=== PATIENT | female | born 1955 | race Caucasian/White ===

== ENCOUNTER → 2018-09-14 | Outpatient (CLI) | payer OTHER ==
[~2018-09-14] MED LIST: ALPRAZOLAM 0.0.25 M1 PO; AMITRIPTYLINE H25 M2 PO; CALCIUM 1,0001 EACH PO; CLONAZEPAM 1 MG1 M1 PO; DULCOLAX5 MG PO; ESTRACE0.5 MG PO; FISH OIL 1,0001 EAC5 PO; INDERAL LA120 M1 PO; LINZESS290 MCG PO; LIPITOR 10 MG10 M1 PO; LISINOPRIL10 MG PO; MOM PO; PREDNISONE 10 M10 M1; PRILOSEC 20 MG20 MG PO; STELARA45 MG/0.1 SQ
== END ==
LOC: M.WC 08:30
DX: I87.331 Chronic venous hypertension (idiopathic) with ulcer and inflammation of right lower extremity (principal); L97.812 Non-pressure chronic ulcer of other part of right lower leg with fat layer exposed; M81.0 Age-related osteoporosis without current pathological fracture; F41.9 Anxiety disorder, unspecified; F32.9 Major depressive disorder, single episode, unspecified

== ENCOUNTER → 2018-09-21 | Outpatient (CLI) | payer OTHER | LOC: M.WC 05:03 | DX: I87.331 Chronic venous hypertension (idiopathic) with ulcer and inflammation of right lower extremity (principal); L97.811 Non-pressure chronic ulcer of other part of right lower leg limited to breakdown of skin; M81.0 Age-related osteoporosis without current pathological fracture; F41.9 Anxiety disorder, unspecified; F32.9 Major depressive disorder, single episode, unspecified ==

== ENCOUNTER → 2018-09-30 | Outpatient (CLI) | payer OTHER | LOC: M.WC 00:26 | DX: I87.331 Chronic venous hypertension (idiopathic) with ulcer and inflammation of right lower extremity (principal); L97.811 Non-pressure chronic ulcer of other part of right lower leg limited to breakdown of skin; M81.0 Age-related osteoporosis without current pathological fracture; F41.9 Anxiety disorder, unspecified; F32.9 Major depressive disorder, single episode, unspecified ==

== ENCOUNTER → 2018-10-05 | Outpatient (CLI) | payer OTHER | LOC: M.WC 05:36 | DX: I87.331 Chronic venous hypertension (idiopathic) with ulcer and inflammation of right lower extremity (principal); L97.818 Non-pressure chronic ulcer of other part of right lower leg with other specified severity; L03.115 Cellulitis of right lower limb; I10 Essential (primary) hypertension; M81.0 Age-related osteoporosis without current pathological fracture; F41.9 Anxiety disorder, unspecified; F32.9 Major depressive disorder, single episode, unspecified ==

== ENCOUNTER → 2018-10-11 | Outpatient (CLI) | payer OTHER | LOC: M.WC 07:44 | DX: I87.331 Chronic venous hypertension (idiopathic) with ulcer and inflammation of right lower extremity (principal); L97.812 Non-pressure chronic ulcer of other part of right lower leg with fat layer exposed; M81.0 Age-related osteoporosis without current pathological fracture; F41.9 Anxiety disorder, unspecified; F32.9 Major depressive disorder, single episode, unspecified ==

== ENCOUNTER → 2018-10-26 | Outpatient (CLI) | payer OTHER | LOC: M.WC 05:17 | DX: I87.331 Chronic venous hypertension (idiopathic) with ulcer and inflammation of right lower extremity (principal); L97.818 Non-pressure chronic ulcer of other part of right lower leg with other specified severity; M81.0 Age-related osteoporosis without current pathological fracture; F41.9 Anxiety disorder, unspecified; F32.9 Major depressive disorder, single episode, unspecified ==

== ENCOUNTER → 2019-05-24 | Outpatient (CLI) | payer OTHER | LOC: M.WC 07:52 | DX: S81.811A Laceration without foreign body, right lower leg, initial encounter (principal); I10 Essential (primary) hypertension; L40.50 Arthropathic psoriasis, unspecified; M81.0 Age-related osteoporosis without current pathological fracture; F41.9 Anxiety disorder, unspecified; F32.9 Major depressive disorder, single episode, unspecified; Z90.710 Acquired absence of both cervix and uterus; W10.8XXA Fall (on) (from) other stairs and steps, initial encounter; Y93.89 Activity, other specified; Y92.89 Other specified places as the place of occurrence of the external cause; Y99.8 Other external cause status ==

== ENCOUNTER → 2019-05-27 | Outpatient (CLI) | payer OTHER | LOC: M.WC 03:58 | DX: S81.811A Laceration without foreign body, right lower leg, initial encounter (principal); I10 Essential (primary) hypertension; L40.50 Arthropathic psoriasis, unspecified; M81.0 Age-related osteoporosis without current pathological fracture; F41.9 Anxiety disorder, unspecified; F32.9 Major depressive disorder, single episode, unspecified; Z90.710 Acquired absence of both cervix and uterus; W10.8XXA Fall (on) (from) other stairs and steps, initial encounter; Y93.89 Activity, other specified; Y92.89 Other specified places as the place of occurrence of the external cause; Y99.8 Other external cause status ==

== ENCOUNTER → 2019-06-01 | Outpatient (CLI) | payer OTHER | LOC: M.WC 09:04 | DX: S81.811A Laceration without foreign body, right lower leg, initial encounter (principal); L40.50 Arthropathic psoriasis, unspecified; I10 Essential (primary) hypertension; M81.0 Age-related osteoporosis without current pathological fracture; F41.9 Anxiety disorder, unspecified; F32.9 Major depressive disorder, single episode, unspecified; Z90.710 Acquired absence of both cervix and uterus; W10.9XXA Fall (on) (from) unspecified stairs and steps, initial encounter; Y93.89 Activity, other specified; Y92.89 Other specified places as the place of occurrence of the external cause; Y99.8 Other external cause status ==

== ENCOUNTER → 2019-06-07 | Outpatient (CLI) | payer OTHER | LOC: M.WC 03:55 | DX: S81.811D Laceration without foreign body, right lower leg, subsequent encounter (principal); L40.50 Arthropathic psoriasis, unspecified; I10 Essential (primary) hypertension; M81.0 Age-related osteoporosis without current pathological fracture; F41.9 Anxiety disorder, unspecified; F32.9 Major depressive disorder, single episode, unspecified; X58.XXXD Exposure to other specified factors, subsequent encounter ==

== ENCOUNTER → 2019-06-14 | Outpatient (CLI) | payer OTHER | LOC: M.WC 04:27 | DX: S81.811D Laceration without foreign body, right lower leg, subsequent encounter (principal); I10 Essential (primary) hypertension; L40.50 Arthropathic psoriasis, unspecified; M81.0 Age-related osteoporosis without current pathological fracture; F41.9 Anxiety disorder, unspecified; F32.9 Major depressive disorder, single episode, unspecified; X58.XXXD Exposure to other specified factors, subsequent encounter ==

== ENCOUNTER → 2019-06-21 | Outpatient (CLI) | payer OTHER | LOC: M.WC 04:37 | DX: S81.811D Laceration without foreign body, right lower leg, subsequent encounter (principal); L40.50 Arthropathic psoriasis, unspecified; I10 Essential (primary) hypertension; M81.0 Age-related osteoporosis without current pathological fracture; F41.9 Anxiety disorder, unspecified; F32.9 Major depressive disorder, single episode, unspecified; X58.XXXD Exposure to other specified factors, subsequent encounter ==

== ENCOUNTER → 2019-06-28 | Outpatient (CLI) | payer OTHER | LOC: M.WC 03:47 | DX: S81.811D Laceration without foreign body, right lower leg, subsequent encounter (principal); L40.50 Arthropathic psoriasis, unspecified; I10 Essential (primary) hypertension; M81.0 Age-related osteoporosis without current pathological fracture; F41.9 Anxiety disorder, unspecified; F32.9 Major depressive disorder, single episode, unspecified; X58.XXXD Exposure to other specified factors, subsequent encounter ==

== ENCOUNTER → 2019-07-05 | Outpatient (CLI) | payer OTHER | LOC: M.WC 04:23 | DX: S81.811D Laceration without foreign body, right lower leg, subsequent encounter (principal); L40.50 Arthropathic psoriasis, unspecified; I10 Essential (primary) hypertension; M81.0 Age-related osteoporosis without current pathological fracture; F41.9 Anxiety disorder, unspecified; F32.9 Major depressive disorder, single episode, unspecified; X58.XXXD Exposure to other specified factors, subsequent encounter ==

== ENCOUNTER → 2019-07-19 | Outpatient (CLI) | payer OTHER | LOC: M.WC 04:50 | DX: S81.811D Laceration without foreign body, right lower leg, subsequent encounter (principal); L40.50 Arthropathic psoriasis, unspecified; I10 Essential (primary) hypertension; M81.0 Age-related osteoporosis without current pathological fracture; F41.9 Anxiety disorder, unspecified; F32.9 Major depressive disorder, single episode, unspecified; W10.9XXD Fall (on) (from) unspecified stairs and steps, subsequent encounter ==

== ENCOUNTER → 2019-08-02 | Outpatient (CLI) | payer OTHER | LOC: M.WC 04:24 | DX: S81.811D Laceration without foreign body, right lower leg, subsequent encounter (principal); L40.50 Arthropathic psoriasis, unspecified; I10 Essential (primary) hypertension; M81.0 Age-related osteoporosis without current pathological fracture; F41.9 Anxiety disorder, unspecified; F32.9 Major depressive disorder, single episode, unspecified; X58.XXXD Exposure to other specified factors, subsequent encounter ==